=== PATIENT | female | born 1980 | race Caucasian/White ===

== ENCOUNTER 2021-03-20 13:14 | Emergency (ER) | payer OTHER ==
--- NOTE | 2021-03-20 14:06 | RAD REPORT ---
EXAM DESCRIPTION: CT - Head Brain Wo Cont - 03/20/2021 1:51 pm CLINICAL HISTORY: Headache COMPARISON: None TECHNIQUE: Computed axial tomography of the head was obtained. IV contrast was not requested. All CT scans are performed using dose optimization technique as appropriate and may include automated exposure control or mA/KV adjustment according to patient size. FINDINGS: An intracranial bleed is not seen . The ventricles are normal in caliber. No extra-axial fluid collection is noted. Fluid within the sinuses/ mastoids is not seen. IMPRESSION: No acute intracranial abnormality is seen. If patient's symptoms persist MRI of the bra in would be recommended.
[2021-03-20] MEDS ORDERED: LORAZEPAM 1 MG TABLET ONE (15:37)
[2021-03-20 16:46] LABS: Barbiturates NEGATIVE (NEGATIVE); Benzodiazepines NEGATIVE (NEGATIVE); Cocaine NEGATIVE (NEGATIVE); METHAMPHETAM POSITIVE (NEGATIVE); Methadone NEGATIVE (NEGATIVE); Opiates NEGATIVE (NEGATIVE); Phencyclidine NEGATIVE (NEGATIVE); THC Cannibis POSITIVE (NEGATIVE)
[2021-03-20 17:15] LABS: Absolute Lymphocytes (CBC) 1.9 K/uL (0.7-4.9); Basophils % 1.1 % (0-1.3); Hematocrit 38.4 % (36.0-45.0); Lymphocytes % 34.2 % (15.3-44.8); MPV 10.3 fL (7.6-11.3); RBC Red Blood Cell Count 4.21 M/uL (3.86-4.86)
[2021-03-20 17:31] LABS: ALT/SGPT 82 U/L (12-78); AST/SGOT 71 U/L (15-37); Albumin 4.3 g/dL (3.4-5.0); Alkaline Phosphatase 138 U/L (45-117); BUN Blood Urea Nitrogen 19 mg/dL (7-18); Bicarbonate 25 mmol/L (21-32); Bilirubin Direct 0.3 mg/dL (0-0.2); Bilirubin Total 0.8 mg/dL (0.2-1.0); Glucose Level 81 mg/dL (74-106); Potassium 3.5 mmol/L (3.5-5.1); Protein, Total 8.1 g/dL (6.4-8.2); Protime INR 1.02; Sodium Level 142 mmol/L (136-145)
--- NOTE | 2021-03-20 17:58 | ER ---
Nurse's Notes [facility] Name: Jaquelin Reis Age: 40 yrs Sex: Female : 1980 Arrival Date: 03/20/2021 Time: 13:16 Bed 17 Private MD: Diagnosis: Other specified anxiety disorders Presentation: 03/20 13:21 Chief complaint: Patient states: was having a panic attack last night after getting iw into an argument with her , states she was banging her head against the wall , pt denies SI at this time, has calmed down since last night , she called her psychiatrist and she recommended her be seen in ER. 13:46 Coronavirus screen: At this time, the client does not indicate any symptoms associated iw with coronavirus-19. Ebola Screen: Patient negative for fever greater than or equal to 101.5 degrees Fahrenheit, and additional compatible Ebola Virus Disease symptoms Patient denies exposure to infectious person. Patient denies travel to an Ebola-affected area in the 21 days before illness onset. No symptoms or risks identified at this time. Initial Sepsis Screen: Does the patient meet any 2 criteria? No. Patient's initial sepsis screen is negative. Does the patient have a suspected source of infection? No. Patient's initial sepsis screen is negative. Risk Assessment: Do you want to hurt yourself or someone else? Patient reports no desire to harm self or others. Onset of symptoms. 13:46 Method Of Arrival: EMS: [facility] iw 13:46 Acuity: DIXIE 3 iw Triage Assessment: 16:40 General: Appears in no apparent distress. Pain: Denies pain. kh1 CHARRER: 13:43 LMP N/A - Hysterectomy iw Historical: - Allergies: 13:44 Reglan; iw 13:44 Zoloft; iw 13:44 tramadol; iw 13:44 Toradol; iw - PMHx: 13:44 Depressive disorder; iw - Immunization history:: Adult Immunizations up to date. - Social history:: Patient/guardian denies using alcohol, street drugs, The patient lives with family, Patient uses alcohol, on a daily basis. Smoking status: Patient reports the use of cigarette tobacco products, smokes one-half pack cigarettes per day. - Family history:: not pertinent. Screenin:00 Abuse screen: Denies threats or abuse. Nutritional screening: No deficits noted. [facility] Tuberculosis screening: No symptoms or risk factors identified. Fall Risk None identified. Assessment: 14:00 General: Appears in no apparent distress. Behavior is calm, cooperative. Pain: Denies [facility] pain. Neuro: No deficits noted. Cardiovascular: No deficits noted. Respiratory: No deficits noted. GI: No deficits noted. : No deficits noted. 15:00 Reassessment: Patient appears in no apparent distress at this time. No changes from [facility] previously documented assessment. Patient and/or family updated on plan of care and expected duration. Pain level reassessed. Patient is alert, oriented x 3, equal unlabored respirations, skin warm/dry/pink. 16:00 Reassessment: Patient appears in no apparent distress at this time. No changes from [facility] previously documented assessment. Patient and/or family updated on plan of care and expected duration. Pain level reassessed. Patient is alert, oriented x 3, equal unlabored respirations, skin warm/dry/pink. Vital Signs: 13:43 BP 151 / 100; Pulse 85; Resp 18 S; Temp 98.0; Pulse Ox 99% on R/A; Weight 106.59 kg; iw Height 5 ft. 11 in. (180.34 cm); 16:55 BP 133 / 83; Pulse 78; Resp 20; Pulse Ox 98% on R/A; kh1 13:43 Body Mass Index 32.78 (106.59 kg, 180.34 cm) iw Vitals: 14:00 Cardiac Rhythm Assessment Regular. [facility] ED Course: 13:16 Patient arrived in ED. mt 13:21 Karen Murrieta MD is Attending Physician. ma2 13:46 Triage completed. iw 13:51 CT Head Brain wo Cont In Process Unspecified. EDMS 14:00 Patient has correct armband on for positive identification. Bed in low position. Call [facility] light in reach. Side rails up X 1. 14:24 EKG done, by ED staff, reviewed by Karen Murrieta MD. 3 15:16 Linda Tyson is Primary Nurse. kh1 16:40 Arm band placed on right wrist. kh1 16:42 No provider procedures requiring assistance completed. [facility] Administered Medications: 14:28 Not Given (Physician Discretion): Ativan (LORazepam) 1 mg IVP once iw 15:17 Drug: Ativan (LORazepam) 1 mg Route: PO; kh1 Outcome: 17:57 Discharge ordered by . joy 20:33 Patient left the ED. jb4 Signatures: Dispatcher [employer] Jacqueline Benson RN RN iw Bryson, James, RN RN jb4 Thompson, Moriah mt Herrera, Deanna [facility] Karen Murrieta MD MD ma2 Linda Tyson [facility]
--- NOTE | 2021-03-20 17:58 | EDPHYS ---
Physician Documentation [facility] Name: Jaquelin Reis Age: 40 yrs Sex: Female : 1980 Arrival Date: 03/20/2021 Time: 13:16 Bed 17 Private MD: ED Physician Karen Murrieta HPI: 03/20 14:14 This 40 yrs old Female presents to ER via EMS with complaints of Anxiety. ma2 14:14 The patient presents to the emergency department with anxiety. Onset: The ma2 symptoms/episode began/occurred gradually, 1 day(s) ago. Associated signs and symptoms: Pertinent negatives: chest pain, delusions, fever, headache, paranoia, shortness of breath, suicide ideation, vomiting. Severity of symptoms: At their worst the symptoms were mild in the emergency department the symptoms are unchanged. The patient has not experienced similar symptoms in the past. [employer]: 13:43 LMP N/A - Hysterectomy iw Historical: - Allergies: 13:44 Reglan; iw 13:44 Zoloft; iw 13:44 tramadol; iw 13:44 Toradol; iw - PMHx: 13:44 Depressive disorder; iw - Immunization history:: Adult Immunizations up to date. - Social history:: Patient/guardian denies using alcohol, street drugs, The patient lives with family, Patient uses alcohol, on a daily basis. Smoking status: Patient reports the use of cigarette tobacco products, smokes one-half pack cigarettes per day. - Family history:: not pertinent. ROS: 14:14 Constitutional: Negative for fever, chills, and weight loss. ma2 14:14 All other systems are negative. Exam: 14:14 Constitutional: This is a well developed, well nourished patient who is awake, alert, ma2 and in no acute distress. Head/Face: Normocephalic, atraumatic. Eyes: Pupils equal round and reactive to light, extra-ocular motions intact. Lids and lashes normal. Conjunctiva and sclera are non-icteric and not injected. Cornea within normal limits. Periorbital areas with no swelling, redness, or edema. ENT: Nares patent. No nasal discharge, no septal abnormalities noted. Tympanic membranes are normal and external auditory canals are clear. Oropharynx with no redness, swelling, or masses, exudates, or evidence of obstruction, uvula midline. Mucous membranes moist. Neck: Trachea midline, no thyromegaly or masses palpated, and no cervical lymphadenopathy. Supple, full range of motion without nuchal rigidity, or vertebral point tenderness. No Meningismus. Chest/axilla: Normal chest wall appearance and motion. Nontender with no deformity. No lesions are appreciated. Cardiovascular: Regular rate and rhythm with a normal S1 and S2. No gallops, murmurs, or rubs. Normal PMI, no JVD. No pulse deficits. Respiratory: Lungs have equal breath sounds bilaterally, clear to auscultation and percussion. No rales, rhonchi or wheezes noted. No increased work of breathing, no retractions or nasal flaring. Abdomen/GI: Soft, non-tender, with normal bowel sounds. No distension or tympany. No guarding or rebound. No evidence of tenderness throughout. Back: No spinal tenderness. No costovertebral tenderness. Full range of motion. Skin: Warm, dry with normal turgor. Normal color with no rashes, no lesions, and no evidence of cellulitis. MS/ Extremity: Pulses equal, no cyanosis. Neurovascular intact. Full, normal range of motion. Neuro: Awake and alert, GCS 15, oriented to person, place, time, and situation. Cranial nerves II-XII grossly intact. Motor strength 5/5 in all extremities. Sensory grossly intact. Cerebellar exam normal. Normal gait. Vital Signs: 13:43 BP 151 / 100; Pulse 85; Resp 18 S; Temp 98.0; Pulse Ox 99% on R/A; Weight 106.59 kg; iw Height 5 ft. 11 in. (180.34 cm); 16:55 BP 133 / 83; Pulse 78; Resp 20; Pulse Ox 98% on R/A; kh1 13:43 Body Mass Index 32.78 (106.59 kg, 180.34 cm) iw MDM: 13:22 Patient medically screened. ma2 14:14 Differential diagnosis: drug withdrawal. acute psychotic break, depression, psychosis ma2 secondary to non-compliance. Data reviewed: vital signs, nurses notes. Counseling: I had a detailed discussion with the patient and/or guardian regarding: the historical points, exam findings, and any diagnostic results supporting the discharge/admit diagnosis, the presence of at least one elevated blood pressure reading (>120/80) during this emergency department visit, the need for outpatient follow up. Response to treatment: the patient's symptoms have markedly improved after treatment. ED course: patient has anxiety she does not have si, hi or avh at this time, she did hit her head voluntarily a month ago and has been having headaches since then, did not seek health care at that time. out of her psych medication. 03/20 13:22 Order name: Acetaminophen [facility] 03/20 13:22 Order name: Basic Metabolic Panel [facility] 03/20 13:22 Order name: CBC with Diff [facility] 03/20 13:22 Order name: ETOH Level [facility] 03/20 13:22 Order name: Hepatic Function; Complete Time: 17:56 [facility] 03/20 13:22 Order name: PT-INR; Complete Time: 17:56 [facility] 03/20 13:22 Order name: Ptt, Activated; Complete Time: 17:56 [facility] 03/20 13:22 Order name: Salicylate; Complete Time: 17:56 [facility] 03/20 13:22 Order name: Urine Drug Screen; Complete Time: 17:17 [facility] 03/20 13:22 Order name: Acetaminophen Level; Complete Time: 17:56 [facility] 03/20 13:22 Order name: Basic Metabolic Panel; Complete Time: 17:56 [facility] 03/20 13:22 Order name: CBC with Automated Diff; Complete Time: 17:56 [facility] 03/20 13:22 Order name: Alcohol Serum/Plasma; Complete Time: 17:56 [facility] 03/20 13:36 Order name: CT Head Brain wo Cont; Complete Time: 14:21 [facility] 03/20 13:22 Order name: EKG; Complete Time: 13:23 [facility] 03/20 13:22 Order name: EKG - Nurse/Tech; Complete Time: 14:25 [facility] 03/20 13:22 Order name: IV Saline Lock; Complete Time: 13:47 [facility] 03/20 13:22 Order name: Labs collected and sent; Complete Time: 13:47 [facility] 03/20 13:22 Order name: Suicide Screening ([place]) [facility] Administered Medications: 14:28 Not Given (Physician Discretion): Ativan (LORazepam) 1 mg IVP once iw 15:17 Drug: Ativan (LORazepam) 1 mg Route: PO; kh1 Disposition Summary: 03/20/21 17:57 Discharge Ordered Location: Home ma2 Condition: Stable ma2 Diagnosis - Other specified anxiety disorders ma2 Followup: ma2 - With: Private Physician - When: Tomorrow - Reason: If symptoms return, Continuance of care Discharge Instructions: - Discharge Summary Sheet ma2 - Managing Anxiety, Adult ma2 Forms: - Medication Reconciliation Form ma2 - Thank You Letter ma2 - Antibiotic Education ma2 - Prescription Opioid Use ma2 Prescriptions: - Prozac 10 mg Oral Capsule - take 1 capsule by ORAL route once daily; 30 capsule; Refills: 0, Product ma2 Selection Permitted Signatures: Dispatcher [employer] Jacqueline Benson RN RN iw Karen Murrieta MD MD ok2 Linda Tyson [facility]
[2021-03-20 21:18] VITALS: TEMP 98
[2021-03-20 21:19] VITALS: BP 133/83; O2SAT 98
--- NOTE | 2021-03-21 15:13 | EKG ---
Test Date: 2021-03-20 Test Time: 14:18:49 Applications Developer: BERNICE MEASUREMENT RESULTS: Intervals: Rate: 73 NE: 150 QRSD: 92 QT: 400 QTc: 440 Schurz: P: 75 NE: 150 QRS: 75 T: 74 INTERPRETIVE STATEMENTS: Normal sinus rhythm Normal ECG No previous ECG available for comparison Electronically Signed On 03-21-21 15:10:58 CDT by Marlo Moyer
== END 2021-03-20 20:33 | disposition home or self-care (01) ==
LOC: ER 13:14
DX: F41.8 Other specified anxiety disorders (principal); F32.9 Major depressive disorder, single episode, unspecified; F17.210 Nicotine dependence, cigarettes, uncomplicated; Z88.5 Allergy status to narcotic agent; Z88.8 Allergy status to other drugs, medicaments and biological substances
CPT/HCPCS: 36415; 70450; 80048; 80076; 80307; 80320; 80329; 85025; 85610; 85730; 93005; 99284